=== PATIENT | female | born 1955 | race Two or more races ===

== ENCOUNTER 2017-11-13 18:32 | Inpatient (IN) | payer MEDICARE, MEDICAID ==
[~2017-11-13] VITALS: Ht 154.9 cm; Wt 50.8 kg
[2017-11-13] MEDS ORDERED: ALBUTEROL/IPRATROPIUM 2.5MG/0.5MG, 3 ML ONE ×3 (19:07→20:46)
[2017-11-13] MEDS: ALBUTEROL/IPRATROPIUM 2.5MG/0.5MG, 3 ML NPPB SCH ×2 (19:15→19:51)
[2017-11-13 19:35] LABS: BASOPHILS # (AUTO) 0.05 x10^3/uL (0-0.1); BASOPHILS % (AUTO) 0 % (0-1); EOSINOPHILS # (AUTO) 0.18 x10^3/uL (0-0.4); EOSINOPHILS % (AUTO) 1 % (1-7); LYMPHOCYTES # (AUTO) 1.78 x10^3/uL (1-3.4); LYMPHOCYTES % (AUTO) 12 % (22-44); MD NO; MEAN CORPUSCULAR HEMOGLOBIN 30.6 pg (27.0-34.8); MEAN CORPUSCULAR HGB CONC 33.7 g/dL (32.4-35.8); MEAN CORPUSCULAR VOLUME 90.9 fL (80-100); MEAN PLATELET VOLUME 10.1 fL (7.4-10.4); MONOCYTES # (AUTO) 0.54 x10^3/uL (0.2-0.8); MONOCYTES % (AUTO) 4 % (2-9); NEUTROPHILS # (AUTO) 12.06 x10^3/uL (1.8-6.8); NEUTROPHILS % (AUTO) 83 % (42-75); PLATELET COUNT 218 x10^3/uL (130-400); RED BLOOD COUNT 5.29 x10^6/uL (3.82-5.3); RED CELL DISTRIBUTION WIDTH 13.1 % (9.6-15.2)
[2017-11-13] MEDS ORDERED: LORA1TAB35 PO (19:38)
[2017-11-13] MEDS ORDERED: PANT20TA3 PO (19:38)
[2017-11-13] MEDS ORDERED: CHOL500050 PO (19:38)
[2017-11-13] MEDS ORDERED: HYDR25TA11 PO (19:38)
[2017-11-13] MEDS ORDERED: AMLO10TA2 PO (19:38)
[2017-11-13] MEDS ORDERED: ATOR40TA PO (19:38)
[2017-11-13] MEDS ORDERED: METF500T4 PO (19:38)
[2017-11-13] MEDS ORDERED: DIPH25CA61 PO (19:38)
[2017-11-13] MEDS ORDERED: CYAN250013 PO (19:38)
[2017-11-13 19:45] LABS: ALBUMIN 4.3 g/dL (3.4-5.0); ANION GAP 9 mmol/L (5-15); CALCIUM 9.1 mg/dL (8.5-10.1); CHLORIDE 104 mmol/L (98-107)
[2017-11-13 19:50] LABS: ALANINE AMINOTRANSFERASE 22 U/L (12-78); ALKALINE PHOSPHATASE 116 U/L (45-117); BILIRUBIN,TOTAL 0.7 mg/dL (0.2-1.0); CREATININE 1.09 mg/dL (0.55-1.02); TOTAL PROTEIN 8.2 g/dL (6.4-8.2)
[2017-11-13] MEDS ORDERED: CEFTRIAXONE 1,000 MG in SODIUM CHLORIDE 0.9% 50 ML IV SCH (21:00)
[2017-11-13] MEDS ORDERED: ALBUTEROL/IPRATROPIUM 2.5MG/0.5MG, 3 ML NPPB ONE (21:00)
[2017-11-13] MEDS ORDERED: CEFTRIAXONE PMX 1GM/50ML 50 ML ONE (21:00)
[2017-11-13] MEDS ORDERED: ONDANSETRON 2MG/ML, 2ML IVPush PRN (21:30)
[2017-11-13] MEDS ORDERED: DEXTROSE 4 GM TAB.CHEW PO PRN (21:30)
[2017-11-13] MEDS ORDERED: DIPHENHYDRAMINE 25 MG CAPSULE PO PRN (21:30)
[2017-11-13] MEDS ORDERED: GLUCAGON 1 MG IM PRN (21:30)
[2017-11-13] MEDS ORDERED: DEXTROSE 50%, 50ML SYRINGE IVPush PRN (21:30)
[2017-11-13] MEDS ORDERED: ERGOCALCIFEROL 50,000 UNIT CAPSULE PO SCH (21:30)
[2017-11-13 22:15] VITALS: BP 135/64
[2017-11-13] MEDS: ATORVASTATIN 40 MG TABLET PO SCH (22:54)
[2017-11-13] MEDS: SODIUM CHLORIDE 0.9% 1,000 ML IV SCH (22:54)
[2017-11-13] MEDS: MONTELUKAST 10 MG TABLET PO SCH (22:54)
[2017-11-13] MEDS: ACETAMINOPHEN 325 MG TABLET PO PRN (22:55)
[2017-11-14 02:16] VITALS: BP 114/64
[2017-11-14 08:07] VITALS: BP 102/61
[2017-11-14] MEDS: LORATADINE/PSE 5/120MG TAB.ER.12H PO SCH (09:44)
[2017-11-14] MEDS: CYANOCOBALAMIN 1,000 MCG TABLET PO SCH (09:44)
[2017-11-14] MEDS: PANTOPRAZOLE 20MG TABLET PO SCH (09:44)
[2017-11-14] MEDS: AMLODIPINE 5 MG TABLET PO SCH (09:44)
[2017-11-14] MEDS: metFORMIN 500 MG TABLET PO SCH (09:44)
[2017-11-14] MEDS: SODIUM CHLORIDE FLUSH 10ML SYR IVF SCH ×2 (09:45→20:58)
[2017-11-14] MEDS: FLUTICASONE NASAL SPRAY 16GM NAS SCH (10:39)
[2017-11-14] MEDS: SODIUM CHLORIDE 0.9% 1,000 ML IV SCH (13:08)
[2017-11-14 14:38] VITALS: BP 155/70
[2017-11-14] MEDS: ACETAMINOPHEN 325 MG TABLET PO PRN (15:25)
[2017-11-14 19:00] VITALS: BP 122/66
[2017-11-14] MEDS ORDERED: HYDROcodone/CHLORPHENIR ORAL SUSP PO PRN (20:00)
[2017-11-14] MEDS: ATORVASTATIN 40 MG TABLET PO SCH (20:52)
[2017-11-14] MEDS: MONTELUKAST 10 MG TABLET PO SCH (20:52)
[2017-11-14] MEDS: GUAIFENESIN/DM 200-20MG, 10ML UDC PO PRN (20:53)
[2017-11-14] MEDS ORDERED: CEFTRIAXONE PMX 1GM/50ML 50 ML IV SCH (21:00)
[2017-11-15 00:43] VITALS: BP 137/69
[2017-11-15] MEDS: SODIUM CHLORIDE 0.9% 1,000 ML IV SCH (02:28)
[2017-11-15 07:34] VITALS: BP 117/67
[2017-11-15] MEDS: BENZONATATE 100 MG CAPSULE PO SCH ×3 (10:19→20:20)
[2017-11-15] MEDS: LORATADINE/PSE 5/120MG TAB.ER.12H PO SCH (10:19)
[2017-11-15] MEDS: CYANOCOBALAMIN 1,000 MCG TABLET PO SCH (10:19)
[2017-11-15] MEDS: AMLODIPINE 5 MG TABLET PO SCH (10:19)
[2017-11-15] MEDS: PANTOPRAZOLE 20MG TABLET PO SCH (10:19)
[2017-11-15] MEDS: FLUTICASONE NASAL SPRAY 16GM NAS SCH (10:20)
[2017-11-15] MEDS: metFORMIN 500 MG TABLET PO SCH (10:20)
[2017-11-15] MEDS: SODIUM CHLORIDE FLUSH 10ML SYR IVF SCH ×2 (10:20→20:20)
[2017-11-15 12:45] VITALS: BP 113/67
[2017-11-15 18:40] VITALS: BP 123/68
[2017-11-15] MEDS: MONTELUKAST 10 MG TABLET PO SCH (20:20)
[2017-11-15] MEDS: ATORVASTATIN 40 MG TABLET PO SCH (20:21)
[2017-11-16 02:02] VITALS: BP 106/58
[2017-11-16 06:55] VITALS: BP 127/74
[2017-11-16] MEDS: AMLODIPINE 5 MG TABLET PO SCH (08:31)
[2017-11-16] MEDS: metFORMIN 500 MG TABLET PO SCH (08:31)
[2017-11-16] MEDS: PANTOPRAZOLE 20MG TABLET PO SCH (08:31)
[2017-11-16] MEDS: LORATADINE/PSE 5/120MG TAB.ER.12H PO SCH (08:31)
[2017-11-16] MEDS: CYANOCOBALAMIN 1,000 MCG TABLET PO SCH (08:31)
[2017-11-16] MEDS: FLUTICASONE NASAL SPRAY 16GM NAS SCH (08:31)
[2017-11-16] MEDS: SODIUM CHLORIDE FLUSH 10ML SYR IVF SCH ×2 (08:31→20:43)
[2017-11-16] MEDS: BENZONATATE 100 MG CAPSULE PO SCH ×3 (08:31→20:42)
[2017-11-16] MEDS: GUAIFENESIN/DM 200-20MG, 10ML UDC PO PRN (08:40)
[2017-11-16] MEDS ORDERED: MONT10TA9 PO (09:25)
[2017-11-16] MEDS ORDERED: BENZ-17 PO (09:25)
[2017-11-16] MEDS ORDERED: FLUT16SP NAS (09:25)
[2017-11-16] MEDS: ACETAMINOPHEN 325 MG TABLET PO PRN (10:13)
[2017-11-16 12:10] VITALS: BP 131/68
[2017-11-16] MEDS ORDERED: ALBUTEROL/IPRATROPIUM 2.5MG/0.5MG, 3 ML ONE (15:31)
[2017-11-16] MEDS ORDERED: ALBUTEROL/IPRATROPIUM 2.5MG/0.5MG, 3 ML NPPB PRN (16:00)
[2017-11-16 19:16] VITALS: BP 115/69
[2017-11-16] MEDS: ALBUTEROL/IPRATROPIUM 2.5MG/0.5MG, 3 ML NPPB SCH (20:00)
[2017-11-16] MEDS: MONTELUKAST 10 MG TABLET PO SCH (20:42)
[2017-11-16] MEDS: ATORVASTATIN 40 MG TABLET PO SCH (20:42)
[2017-11-17 02:20] VITALS: BP 128/70
[2017-11-17] MEDS: ALBUTEROL/IPRATROPIUM 2.5MG/0.5MG, 3 ML NPPB SCH ×4 (07:05→19:37)
[2017-11-17 08:05] VITALS: BP 115/63
[2017-11-17] MEDS: SODIUM CHLORIDE FLUSH 10ML SYR IVF SCH (08:16)
[2017-11-17] MEDS: GUAIFENESIN/DM 200-20MG, 10ML UDC PO PRN (08:16)
[2017-11-17] MEDS: AMLODIPINE 5 MG TABLET PO SCH (08:16)
[2017-11-17] MEDS: metFORMIN 500 MG TABLET PO SCH (08:16)
[2017-11-17] MEDS: LORATADINE/PSE 5/120MG TAB.ER.12H PO SCH (08:16)
[2017-11-17] MEDS: BENZONATATE 100 MG CAPSULE PO SCH ×2 (08:16→16:34)
[2017-11-17] MEDS: PANTOPRAZOLE 20MG TABLET PO SCH (08:16)
[2017-11-17] MEDS: FLUTICASONE NASAL SPRAY 16GM NAS SCH (08:16)
[2017-11-17] MEDS: CYANOCOBALAMIN 1,000 MCG TABLET PO SCH (08:16)
[2017-11-17 13:56] VITALS: BP 128/68
== END 2017-11-18 00:03 | disposition home or self-care (01) | DRG 189 ==
LOC: ED 20:48 → EDIP 20:50 → SUATTDRO 20:58 → 4EST 22:09
PROVIDERS: ADMIT Hospitalist; ATTEND Hospitalist
DX: J96.01 Acute respiratory failure with hypoxia (principal); J44.1 Chronic obstructive pulmonary disease with (acute) exacerbation; R04.2 Hemoptysis; J45.901 Unspecified asthma with (acute) exacerbation; K21.9 Gastro-esophageal reflux disease without esophagitis; D72.829 Elevated white blood cell count, unspecified; E03.9 Hypothyroidism, unspecified; E11.9 Type 2 diabetes mellitus without complications; E78.5 Hyperlipidemia, unspecified; F41.9 Anxiety disorder, unspecified; I10 Essential (primary) hypertension; Z83.3 Family history of diabetes mellitus; Z87.891 Personal history of nicotine dependence
CPT/HCPCS: 36415; 71046; 80053; 82962; 85025; 85379; 93005; 94640; 99285; J0696; J7620; J7030; J7512; Q0163; Q0177

== ENCOUNTER 2017-12-08 16:34 | Emergency (ER) | payer MEDICARE, MEDICAID ==
[~2017-12-08] VITALS: Ht 152.4 cm; Wt 50.0 kg
[~2017-12-08 16:34] MED LIST: AMLO10TA2 PO; ATOR40TA PO; BENZ-17 PO; CHOL500050 PO; CYAN250013 PO; DIPH25CA61 PO; FLUT16SP NAS; HYDR25TA11 PO; LORA1TAB35 PO; METF500T4 PO; MONT10TA9 PO; PANT20TA3 PO
[2017-12-08] MEDS ORDERED: MAALOX/HYOSCYAMINE/LIDOCAINE 45 ML BTL ONE (16:58)
[2017-12-08] MEDS ORDERED: ALBUTEROL SULFATE 2.5 MG/3 ML NPPB ONE (17:00)
[2017-12-08] MEDS ORDERED: MAALOX/HYOSCYAMINE/LIDOCAINE 45 ML BTL PO ONE (17:00)
[2017-12-08] MEDS ORDERED: SODIUM CHLORIDE FLUSH 10ML SYR IVF ONE (17:00)
[2017-12-08 17:14] LABS: MICROSCOPIC NOT IND
[2017-12-08] MEDS ORDERED: ALBUTEROL SULFATE 2.5 MG/3 ML ONE (17:16)
[2017-12-08 17:23] LABS: CULTURE INDICATED? NO
[2017-12-08 17:58] VITALS: BP 133/55
[2017-12-08 18:04] LABS: ALANINE AMINOTRANSFERASE 22 U/L (12-78); ALBUMIN 3.6 g/dL (3.4-5.0); ANION GAP 12 mmol/L (5-15); CALCIUM 9.6 mg/dL (8.5-10.1); CHLORIDE 106 mmol/L (98-107); CREATININE 1.01 mg/dL (0.55-1.02)
[2017-12-08 18:06] LABS: ALKALINE PHOSPHATASE 90 U/L (45-117); BILIRUBIN,TOTAL 0.4 mg/dL (0.2-1.0); TOTAL PROTEIN 7.2 g/dL (6.4-8.2)
[2017-12-08 18:09] LABS: BASOPHILS # (AUTO) 0.02 x10^3/uL (0-0.1); BASOPHILS % (AUTO) 0 % (0-1); EOSINOPHILS # (AUTO) 0.18 x10^3/uL (0-0.4); EOSINOPHILS % (AUTO) 2 % (1-7); LYMPHOCYTES # (AUTO) 1.18 x10^3/uL (1-3.4); LYMPHOCYTES % (AUTO) 11 % (22-44); MD NO; MEAN CORPUSCULAR HEMOGLOBIN 30.8 pg (27.0-34.8); MEAN CORPUSCULAR HGB CONC 33.1 g/dL (32.4-35.8); MEAN PLATELET VOLUME 9.1 fL (7.4-10.4); MONOCYTES # (AUTO) 0.27 x10^3/uL (0.2-0.8); MONOCYTES % (AUTO) 3 % (2-9); NEUTROPHILS # (AUTO) 8.89 x10^3/uL (1.8-6.8); NEUTROPHILS % (AUTO) 84 % (42-75); PLATELET COUNT 240 x10^3/uL (130-400); RED BLOOD COUNT 5.49 x10^6/uL (3.82-5.3); RED CELL DISTRIBUTION WIDTH 14.2 % (9.6-15.2)
[2017-12-08 18:34] LABS: TROPONIN I < 0.015 ng/mL (0.000-0.045)
== END 2017-12-08 20:05 | disposition home or self-care (01) ==
LOC: ED 19:50
DX: R07.2 Precordial pain (principal); J44.1 Chronic obstructive pulmonary disease with (acute) exacerbation; R10.13 Epigastric pain; I10 Essential (primary) hypertension; Z87.891 Personal history of nicotine dependence
CPT/HCPCS: 36415; 71045; 80053; 81003; 83690; 84484; 85025; 93005; 99285

== ENCOUNTER 2018-10-31 13:07 | Emergency (ER) | payer MEDICARE, MEDICAID ==
[~2018-10-31] VITALS: Ht 152.4 cm; Wt 51.1 kg
[~2018-10-31 13:07] MED LIST changes: -AMLO10TA2 PO; +AMLO10TA8 PO; +AZIT500T5 PO; +BUDE10.2 INH; +CEFD300C37 PO; +GLIM4TAB PO; +IPRA3AMP30 NPPB; +METF500T17 PO; -METF500T4 PO; +PIOG45TA20 PO; +PRED20TA PO; +TIOT18CA INH
[2018-10-31 13:47] LABS: BASOPHILS # (AUTO) 0.01 x10^3/uL (0-0.1); BASOPHILS % (AUTO) 0 % (0-1); EOSINOPHILS # (AUTO) 0.08 x10^3/uL (0-0.4); EOSINOPHILS % (AUTO) 1 % (1-7); LYMPHOCYTES # (AUTO) 2.44 x10^3/uL (1-3.4); LYMPHOCYTES % (AUTO) 33 % (22-44); MD NO; MEAN CORPUSCULAR HEMOGLOBIN 30.9 pg (27.0-34.8); MEAN CORPUSCULAR HGB CONC 33.8 g/dL (32.4-35.8); MEAN CORPUSCULAR VOLUME 91.3 fL (80-100); MEAN PLATELET VOLUME 9.4 fL (7.4-10.4); MONOCYTES # (AUTO) 0.41 x10^3/uL (0.2-0.8); MONOCYTES % (AUTO) 6 % (2-9); NEUTROPHILS # (AUTO) 4.54 x10^3/uL (1.8-6.8); NEUTROPHILS % (AUTO) 61 % (42-75); PLATELET COUNT 223 x10^3/uL (130-400); RED CELL DISTRIBUTION WIDTH 12.8 % (9.6-15.2)
--- NOTE | 2018-10-31 13:48 | NUR ---
PT PRESENTING TO ER FOR RUQ PAIN AND FLANK PAIN WITH INCREASED FREQUENCY OF URINATION X4 DAYS. UA COLLECTED AND SENT LAB. CONNECTED TO MONITORING, VSS. CALL LIGHT WITHIN REACH. AWAITING TESTING AND RESULTS AT THIS TIME
[2018-10-31 13:49] LABS: CULTURE INDICATED? NO; MICROSCOPIC AUTO
[2018-10-31 13:57] LABS: ALANINE AMINOTRANSFERASE 33 U/L (12-78); ALBUMIN 4.3 g/dL (3.4-5.0); ANION GAP 7 mmol/L (5-15); CALCIUM 9.5 mg/dL (8.5-10.1); CHLORIDE 99 mmol/L (98-107); CREATININE 1.08 mg/dL (0.55-1.02)
[2018-10-31 13:59] LABS: ALKALINE PHOSPHATASE 70 U/L (45-117); BILIRUBIN,TOTAL 0.6 mg/dL (0.2-1.0); TOTAL PROTEIN 8.1 g/dL (6.4-8.2)
[2018-10-31] MEDS ORDERED: SODIUM CHLORIDE FLUSH 10ML SYR IVF ONE (14:00)
[2018-10-31] MEDS ORDERED: ONDANSETRON 2MG/ML, 2ML IVPush ONE (14:00)
[2018-10-31] MEDS ORDERED: MORPHINE SULFATE 4 MG/ML, 1ML IVPush PRN (14:00)
[2018-10-31] MEDS ORDERED: ONDANSETRON 2MG/ML, 2ML ONE (14:24)
[2018-10-31] MEDS ORDERED: MORPHINE SULFATE 4 MG/ML, 1ML ONE (14:24)
--- NOTE | 2018-10-31 15:33 | NUR ---
PT TAKEN TO CT
[2018-10-31] MEDS ORDERED: MAALOX/HYOSCYAMINE/LIDOCAINE 45 ML BTL PO ONE (16:30)
[2018-10-31] MEDS ORDERED: FAMOTIDINE 20 MG TABLET PO ONE (16:30)
--- NOTE | 2018-10-31 16:45 | NUR ---
PA TO BEDSIDE TO RECHECK PT. MEDS ORDERED AND DC PAPERS RECEIVED.
[2018-10-31] MEDS ORDERED: MAALOX/HYOSCYAMINE/LIDOCAINE 45 ML BTL ONE (16:46)
[2018-10-31] MEDS ORDERED: FAMOTIDINE 20 MG TABLET ONE (16:46)
[2018-10-31 16:50] VITALS: BP 153/67
[2018-10-31] MEDS ORDERED: OMNIPAQUE 350 MG/ML, 100ML BOTTLE ONE (17:04)
== END 2018-10-31 17:39 | disposition home or self-care (01) ==
LOC: ED 14:40
DX: K29.00 Acute gastritis without bleeding (principal); R10.13 Epigastric pain; E11.9 Type 2 diabetes mellitus without complications; I10 Essential (primary) hypertension; J44.9 Chronic obstructive pulmonary disease, unspecified; Z90.49 Acquired absence of other specified parts of digestive tract; Z87.891 Personal history of nicotine dependence
CPT/HCPCS: 36415; 71045; 74177; 80053; 81001; 83690; 85025; 93005; 96374; 96375; 99284; J2405; Q9967

== ENCOUNTER 2018-11-04 14:54 | Emergency (ER) | payer OTHER, MEDICAID ==
[~2018-11-04] VITALS: Ht 154.9 cm; Wt 51.8 kg
[2018-11-04 15:31] LABS: BASOPHILS # (AUTO) 0.03 x10^3/uL (0-0.1); BASOPHILS % (AUTO) 0 % (0-1); EOSINOPHILS # (AUTO) 0.07 x10^3/uL (0-0.4); EOSINOPHILS % (AUTO) 1 % (1-7); LYMPHOCYTES % (AUTO) 29 % (22-44); MD NO; MEAN CORPUSCULAR HGB CONC 34.7 g/dL (32.4-35.8); MEAN PLATELET VOLUME 9.7 fL (7.4-10.4); MONOCYTES % (AUTO) 6 % (2-9); NEUTROPHILS # (AUTO) 5.23 x10^3/uL (1.8-6.8); NEUTROPHILS % (AUTO) 64 % (42-75); PLATELET COUNT 226 x10^3/uL (130-400); RED BLOOD COUNT 5.38 x10^6/uL (3.82-5.3); RED CELL DISTRIBUTION WIDTH 12.6 % (9.6-15.2)
[2018-11-04 15:39] LABS: ALANINE AMINOTRANSFERASE 33 U/L (12-78); ALBUMIN 4.3 g/dL (3.4-5.0); ANION GAP 6 mmol/L (5-15); CALCIUM 9.1 mg/dL (8.5-10.1); CHLORIDE 96 mmol/L (98-107); CREATININE 1.19 mg/dL (0.55-1.02)
[2018-11-04 15:43] LABS: ALKALINE PHOSPHATASE 63 U/L (45-117); BILIRUBIN,TOTAL 0.3 mg/dL (0.2-1.0); TOTAL PROTEIN 7.7 g/dL (6.4-8.2); TROPONIN I < 0.015 ng/mL (0.000-0.045)
--- NOTE | 2018-11-04 16:25 | NUR ---
GLASS TECHNICIAN USED #[id number]: PT C/O EPIGASTRIC, BURNING CP FOR TWO DAYS, WORSE AFTER EATING AND PALPATION. PAIN IS ALSO IN RUQ WORSE WITH PALPATION. +NAUSEA. PT REPORTS SOB THAT BEGAN AT 6 AM TODAY. PT ON TR. JJ PAC AWARE OF PT COMPLAINTS VIA GLASS TECHNICIAN. PT ALSO REPORTED CONSTIPATION WITH LAST BM TODAY BUT WAS "LITTEL BALLS OF POOP."
--- NOTE | 2018-11-04 17:05 | NUR ---
report to bobby ingram for lunch break.
--- NOTE | 2018-11-04 18:08 | NUR ---
PT RESTING IN BED IN NAD. PT REPORTS THAT SHE IS FEELING BETTER. CHART HAS BEEN UP FOR MD RECHREYMUNDO. AWAITING FURHTER ORDERS.
--- NOTE | 2018-11-04 18:59 | NUR ---
REPORT TO CARLOS HINTON.
[2018-11-04 19:53] VITALS: BP 129/55
== END 2018-11-04 19:55 | disposition home or self-care (01) ==
LOC: ED 17:45
DX: K29.00 Acute gastritis without bleeding (principal); R07.89 Other chest pain; J44.9 Chronic obstructive pulmonary disease, unspecified; I10 Essential (primary) hypertension; E11.40 Type 2 diabetes mellitus with diabetic neuropathy, unspecified
CPT/HCPCS: 36415; 71046; 76700; 80053; 84484; 85025; 93005; 99284

== ENCOUNTER 2018-12-02 20:10 | Emergency (ER) | payer MEDICARE, MEDICAID ==
[~2018-12-02] VITALS: Ht 149.9 cm; Wt 51.0 kg
[2018-12-02] MEDS ORDERED: CYAN500T2 PO (20:44)
[2018-12-02] MEDS ORDERED: SITA100T PO (20:45)
[2018-12-02] MEDS ORDERED: CHLO25TA PO (20:46)
[2018-12-02] MEDS ORDERED: LORA5SOL42 PO (20:47)
[2018-12-02] MEDS ORDERED: PANT20TA3 PO (20:48)
[2018-12-02] MEDS ORDERED: CHOL500050 PO (20:48)
[2018-12-02] MEDS ORDERED: METH4TAB7 PO (20:49)
--- NOTE | 2018-12-02 20:50 | NUR ---
first contact with pt. pt c/o cough/sore throat/barr with fever x 2 days. primary language is wallisian. pt's aox4. resps even and unlabored. bp/spo2 monitors in place. call light within reach. awaiting edmd assessment at this time.
[2018-12-02 20:56] LABS: BASOPHILS # (AUTO) 0.04 x10^3/uL (0-0.1); BASOPHILS % (AUTO) 0 % (0-1); EOSINOPHILS # (AUTO) 0.03 x10^3/uL (0-0.4); EOSINOPHILS % (AUTO) 0 % (1-7); LYMPHOCYTES % (AUTO) 22 % (22-44); MD NO; MEAN CORPUSCULAR HEMOGLOBIN 31.3 pg (27.0-34.8); MEAN CORPUSCULAR HGB CONC 34.4 g/dL (32.4-35.8); MEAN PLATELET VOLUME 9.6 fL (7.4-10.4); MONOCYTES # (AUTO) 0.55 x10^3/uL (0.2-0.8); MONOCYTES % (AUTO) 5 % (2-9); NEUTROPHILS # (AUTO) 7.32 x10^3/uL (1.8-6.8); NEUTROPHILS % (AUTO) 72 % (42-75); PLATELET COUNT 201 x10^3/uL (130-400); RED BLOOD COUNT 5.14 x10^6/uL (3.82-5.3); RED CELL DISTRIBUTION WIDTH 12.5 % (9.6-15.2)
[2018-12-02 21:04] LABS: ANION GAP 12 mmol/L (5-15); CALCIUM 8.5 mg/dL (8.5-10.1); CHLORIDE 95 mmol/L (98-107); CREATININE 1.35 mg/dL (0.55-1.02)
[2018-12-02] MEDS ORDERED: ASPIRIN 81 MG TABLET CHEW ONE (21:26)
[2018-12-02] MEDS ORDERED: POTASSIUM CHLORIDE 20 MEQ TAB.ER.PRT ONE (21:26)
[2018-12-02] MEDS ORDERED: POTASSIUM CHLORIDE 40 MEQ in SODIUM CHLORIDE 0.9% 500 ML IV ONE (21:30)
[2018-12-02] MEDS ORDERED: POTASSIUM CHLORIDE 20 MEQ TAB.ER.PRT PO ONE (21:30)
[2018-12-02] MEDS ORDERED: ASPIRIN 81 MG TABLET CHEW PO ONE (21:30)
--- NOTE | 2018-12-02 21:35 | NUR ---
MED ORDERED FROM PHARMACY NOW.
--- NOTE | 2018-12-02 21:38 | NUR ---
PT MEDICATED PER EMAR. PT TOLERATED WELL.
[2018-12-02 21:43] LABS: TROPONIN I < 0.015 ng/mL (0.000-0.045)
--- NOTE | 2018-12-02 22:10 | NUR ---
RECEIVED BS REPORT FROM MARY JANE HERNANDEZ TO ASSUME CARE OF PT. SHAKIRA REYES IN TO DISCUSS PLAN FOR ADMISSION VIA PIANO MOVER. PT. VEBALIZED UNDERSTANDING OF POC AND ALL QUESTIONS WERE ANSWERED AT THAT TIME. CARDIAC MONTIOR PLACED AND K+ FLUIDS RUNNING PER ORDER. PT. DENIES NEEDS. CALL LIGHT IN REACH. ALL SAFETY MEASUERS OBSERVED.
--- NOTE | 2018-12-02 22:11 | NUR ---
REPORT GIVEN TO CARLOS HINTON.
--- NOTE | 2018-12-02 22:16 | NUR ---
NEW PLAN BY ERP IS TO REPEAT K+ LAB VALUE IN 1 HOUR AND IF K+ IMPROVED PT. TO D/C HOME. WILL UPDATE PT. ON POC.
--- NOTE | 2018-12-02 23:31 | NUR ---
PT. AMBULATORY TO BR WITH STEADY GAIT. MONITORS, IVF BACK IN PLACE AFTER. SMH IN TO DISCUSS PLAN WITH PT. PT. AGREEABLE WITH PLAN TO D/C IF K+ BETTER AND TO BE ADMIT IF NOT. PT. DENIES OHTER NEEDS. SAFETY MEASUERS MAINTAINED. LAB PENDING.
--- NOTE | 2018-12-02 23:33 | NUR ---
LAB RESULT IS BACK K+ 3.0--MD AWARE.
--- NOTE | 2018-12-02 23:40 | NUR ---
DR. ABEL IN TO DISCUSS PLAN FOR D/C WITH PT.
[2018-12-03] VITALS: BP 152/69
== END 2018-12-03 00:01 | disposition home or self-care (01) ==
LOC: ED 22:09 → EDIP 22:20 → UNDOADMIN 22:20 → ED 12-03 00:01
DX: R94.31 Abnormal electrocardiogram [ECG] [EKG] (principal); E87.6 Hypokalemia; J00 Acute nasopharyngitis [common cold]
CPT/HCPCS: 36415; 71046; 80048; 84132; 84484; 85025; 93005; 96365; 96366; 99284; J3480; J7040

== ENCOUNTER 2020-05-25 12:14 | Emergency (ER) | payer MEDICARE, MEDICAID ==
[~2020-05-25] VITALS: Ht 154.9 cm; Wt 49.8 kg
[~2020-05-25 12:14] MED LIST changes: +ALBU2.5V NPPB; +AMLO-150 PO; +AZIT500T10 PO; -AZIT500T5 PO; +CHLO25TA PO; +CYAN500T54 PO; -FLUT16SP NAS; +FLUT16SP24 NAS; +GUAI200T37 PO; +HYDR-826 PO; -HYDR25TA11 PO; +INSU100I11 SQ-INSULIN; +LORA5SOL42 PO; +METF500T PO; +METH4TAB7 PO; +MONT10TA11 PO; -MONT10TA9 PO; -PANT20TA3 PO; +PANT20TA4 PO; +SITA100T PO
--- NOTE | 2020-05-25 13:16 | NUR ---
PT AMBULATED TO ROOM FROM LOBBY.
[2020-05-25] MEDS ORDERED: ALBUTEROL/IPRATROPIUM 2.5MG/0.5MG, 3 ML NPPB ONE (14:00)
[2020-05-25] MEDS ORDERED: ALBUTEROL/IPRATROPIUM 2.5MG/0.5MG, 3 ML ONE (14:02)
[2020-05-25 14:08] LABS: BASOPHILS % (AUTO) 1 % (0-1); EOSINOPHILS % (AUTO) 1 % (1-7); LYMPHOCYTES % (AUTO) 17 % (22-44); MEAN CORPUSCULAR HEMOGLOBIN 30.8 pg (27.0-34.8); MEAN CORPUSCULAR HGB CONC 33.3 g/dL (32.4-35.8); MEAN PLATELET VOLUME 9.3 fL (7.4-10.4); MONOCYTES % (AUTO) 7 % (2-9); NEUTROPHILS % (AUTO) 75 % (42-75); PLATELET COUNT 197 x10^3/uL (130-400); RED BLOOD COUNT 5.47 x10^6/uL (3.82-5.3); RED CELL DISTRIBUTION WIDTH 13.5 % (9.6-15.2)
[2020-05-25 14:12] LABS: MD NO
[2020-05-25 14:20] LABS: ALBUMIN 3.9 g/dL (3.4-5.0); ANION GAP 5 mmol/L (5-15); CALCIUM 9.4 mg/dL (8.5-10.1); CHLORIDE 105 mmol/L (98-107); CREATININE 1.07 mg/dL (0.55-1.02)
[2020-05-25 14:24] LABS: TROPONIN I < 0.015 ng/mL (0.000-0.045)
[2020-05-25 16:10] VITALS: BP 164/82
== END 2020-05-25 16:12 | disposition home or self-care (01) ==
LOC: ED 14:17
DX: J20.9 Acute bronchitis, unspecified (principal); R06.02 Shortness of breath; R05 Cough; I10 Essential (primary) hypertension; E11.9 Type 2 diabetes mellitus without complications; J44.9 Chronic obstructive pulmonary disease, unspecified; Z87.891 Personal history of nicotine dependence
CPT/HCPCS: 36415; 71045; 80048; 82040; 84484; 85025; 93005; 94640; 99285; J7512

== ENCOUNTER 2020-06-12 23:47 | Emergency (ER) | payer MEDICARE, MEDICAID ==
[~2020-06-12] VITALS: Ht 154.9 cm; Wt 50.0 kg
[~2020-06-12 23:47] MED LIST changes: +AMLO-211 PO; -AMLO10TA8 PO; +FLUT1BLS INH; +PRED5TAB PO
[2020-06-13] MEDS ORDERED: BENZONATATE 100 MG CAPSULE PO ONE (00:30)
[2020-06-13] MEDS ORDERED: BENZONATATE 100 MG CAPSULE ONE (00:38)
--- NOTE | 2020-06-13 00:41 | NUR ---
BREAK RN -=-= PT RESTING IN BED, PT HAS FREQUENT COUGH, PT VSS. PT MEDICATED PER EMAR
[2020-06-13] MEDS ORDERED: MAALOX/HYOSCYAMINE/LIDOCAINE 45 ML BTL ONE (01:16)
[2020-06-13] MEDS ORDERED: MAALOX/HYOSCYAMINE/LIDOCAINE 45 ML BTL PO ONE (01:30)
--- NOTE | 2020-06-13 01:59 | NUR ---
Sheet Metal Foreman attempted to called daughter to get a ride home for patient. Daughter was under the impression that patient was going to be admitted. Sheet Metal Foreman explained to daughter that no, she was going to be discharge with some medications. Daughter than explained that she doesnt have a car and would have to called her boyfriend. Daughter asked if script writer would call back in a few mintues. Sheet Metal Foreman called back in a few mins daughter phone was then off and went to voicemail. Sheet Metal Foreman then called boyfriends phone, who became upset regarding script writer calling him. Stating "Its not my fraffy mom, stop calling me." Charge aware of situation. Patient is unsafe to discharge d/t needing oxygen at all times.
--- NOTE | 2020-06-13 02:15 | NUR ---
Public Health Technologist was able to get hold of daughter, per suresh she will be here in about 10-15 mins with her home oxygen.
[2020-06-13 02:16] VITALS: BP 130/60
== END 2020-06-13 02:24 | disposition home or self-care (01) ==
LOC: ED 06-13 00:50
DX: R05 Cough (principal); R07.89 Other chest pain; R06.02 Shortness of breath; I48.91 Unspecified atrial fibrillation; I10 Essential (primary) hypertension; E11.9 Type 2 diabetes mellitus without complications; J44.9 Chronic obstructive pulmonary disease, unspecified; Z90.49 Acquired absence of other specified parts of digestive tract; Z90.710 Acquired absence of both cervix and uterus
CPT/HCPCS: 71045; 93005; 99283